=== PATIENT | female | born 1980 | race Caucasian/White ===

== ENCOUNTER 2018-05-10 09:35 | Outpatient (REF) | payer BC, SELFPAY ==
[2018-05-10 12:45] LABS: FREE T4 1.09 ng/dL (0.76-1.46); TSH 0.34 uIU/mL (0.358-3.74)
== END 2018-05-10 09:55 ==
LOC: LBN 09:35
PROVIDERS: PCP Family Medicine; Visit Provider Nurse Practitioner Family
DX: E04.9 Nontoxic goiter, unspecified (principal)
CPT/HCPCS: 84439; 84443

== ENCOUNTER 2018-07-24 16:13 | Outpatient (REF) | payer BC, SELFPAY ==
[2018-07-24 18:51] LABS: Abs Immature Grans 0.01 k/cumm (0.0-0.09); Absolute Basophil Count 0.02 k/cumm (0.0-0.2); Absolute Eosinophil Count 0.03 k/cumm (0.0-0.7); Absolute Lymphocyte Count 1.67 k/cumm (1.2-3.4); Absolute Monocyte Count 0.87 k/cumm (0.11-0.7); Absolute Neutrophil Count 8.11 k/cumm (1.2-6.7); Basophils % 0.2; Eosinophils % 0.3; HGB 12.1 g/dL (12.0-15.5); Immature Grans % 0.1; Lymphocytes % 15.6; Mean Corp. HGB Concentration 32.7 g/dL (32.0-36.0); Mean Corpuscular Hemoglobin 27.1 pg (27.0-33.0); Mean Corpuscular Volume 82.8 fL (80-95); Mean Platelet Volume 10.8 fL (8.0-11.0); Monocytes % 8.1; Neutrophils % 75.7; Platelet Count 364 x1000/uL (130-400); RBC 4.47 m/cumm (4.00-5.20); RBC Distribution Width 14.7 % (11.7-14.6); White Blood Cell Count 10.71 k/cumm (4.4-10.8)
[2018-07-24 19:16] LABS: ALT 29 U/L (12-78); AST 18 U/L (15-37); Alkaline Phosphatase 81 U/L (46-116); Amylase 42 U/L (25-115); Anion Gap 11.5 mmol/L (3-11); BUN 12 mg/dL (7-18); Bilirubin, Total 1.2 mg/dL (0.2-1.0); CO2 24.5 mmol/L (21.0-32.0); Calcium 9.3 mg/dL (8.5-10.1); Chloride 102 mmol/L (98-107); Glucose 95 mg/dL (70-100); Lipase 105 U/L (73-393); Potassium 3.8 mmol/L (3.5-5.1); Sodium 138 mmol/L (136-145); Total Protein 7.6 g/dL (6.4-8.2)
== END 2018-07-24 16:33 ==
LOC: NCHCN 16:13
PROVIDERS: PCP Family Medicine; Visit Provider Nurse Practitioner Family
DX: R10.10 Upper abdominal pain, unspecified (principal)
CPT/HCPCS: 80053; 83690; 82150; 85025

== ENCOUNTER 2018-08-02 01:44 | Outpatient (CLI) | payer BC, SELFPAY ==
--- NOTE | 2018-08-02 07:51 | DI.US_ITS ---
SYMPTOM/DIAGNOSIS: UPPER ABD PAIN, R10.10 ABDOMEN ULTRASOUND: The aorta and vena cava are intact. The liver has a maximal diameter of 13.4 cm. and is mildly echogenic, presumably on the basis of the fatty infiltration. The gallbladder is normal. There are no stones. There is no biliary dilatation. The pancreas is unremarkable. The spleen is acoustically normal with a maximal diameter of 11.2 cm. The kidneys are unremarkable. There is no evidence of abdominal free fluid. IMPRESSION: No evidence of cholelithiasis, biliary obstruction or acute cholecystitis. There is increased echogenicity in the liver likely representing fatty infiltration. The spleen is somewhat prominent with a maximal diameter of 11.2 cm.
== END 2018-08-02 02:04 ==
PROVIDERS: PCP Nurse Practitioner Family; Visit Provider Nurse Practitioner Family
DX: R10.11 Right upper quadrant pain (principal); K76.0 Fatty (change of) liver, not elsewhere classified; R16.1 Splenomegaly, not elsewhere classified
CPT/HCPCS: 76700

== ENCOUNTER 2018-10-08 06:04 | Day surgery (SDC) | payer BC, SELFPAY ==
[2018-10-08 06:34] VITALS: BP 123/94; PULSE 116; RESP 18; TEMP 36.6; O2SAT 100
--- NOTE | 2018-10-08 06:41 | W.COLOREPORT ---
Date of service: 10/08/18 Time of Service: : Colonoscopy Report Date of procedure: 10/08/18 Pre-op diagnosis general: Colon Cancer Screening and Family history of colon cancer at a young age Post-op diagnosis procedure note: other (Rectal polyp and family history) Procedure: Colonoscopy with polypectomy Surgeon: Pari Rivas Anesthesia proc note operative: other (General/ ASA 2/ Wade Zhu, ADELINE) Estimated blood loss (mL): 2 Pathology: other (rectal polyp) Complications: None Disposition: same day Indications: Mrs. Lennon is a 37 year old female here for her first colonoscopy. Her father was diagnosed and of colon cancer at age 48. She denies any changes in bowel habits. Risks, benefits and complications have been reviewed. Complications include but are not limited to bleeding, pain, perforation, missed small lesion/polyp, sore throat, aspiration and adverse reaction to the medications. Questions were entertained and answered to their satisfaction and they wished to proceed. No guarantees were given or implied. Prep: Miralax/Dulcolax Procedure Start Time: : Procedure End Time: :56 Retraction Time: 15 minutes Findings: One small sessile polyp in the rectum Procedure Description: After informed consent was obtained the patient was taken to the procedure room and placed in a left decubitous position. Monitors were applied and a time out was done. The patients name, date of , procedure, allergies to medications and metal in their body was reviewed. The patient was then sedated. Once sedated and comfortable a rectal exam was done. External exam was normal. Internal exam revealed a normal sphincter tone and no palpable masses. The scope was then introduced and retro-flexed. No internal hemorrhoids were identified. The scope was then advanced to the cecum without difficulty. The TI and appendiceal orifice were identified. The prep was adequate. The scope was then slowly retracted over 15 minutes back into the rectum. Polyps were removed with cold forceps in the rectum. The scope was removed and the patient was woken up and taken back to Same day surgery in stable condition. The patient tolerated the procedure well and there were no immediate complications. Follow up: The patient should follow up in 3-5 years unless they develop changes in bowel habits or other new gastrointestinal complaints.
--- NOTE | 2018-10-08 06:48 | W.PM.DSUDISC ---
Discharge Plan Disposition Patient Disposition: HOME Condition: Good Discharge Details Reason For Visit: Colon Cancer Screening, Family history Attending Provider: Pari Rivas Primary Care Provider: Doe Jones Home Meds and New Rx's Prescriptions: Continued sertraline 50 mg tablet 50 mg PO DAILY RF: 0 multivitamin [Daily Multi-Vitamin] 1 EACH tablet 1 ea PO DAILY RF: 0 Discontinued polyethylene glycol 3350 17 gram/dose powder 238 g PO ONCE Qty: 238 RF: 0 bisacodyl [Dulcolax (bisacodyl)] 5 mg tablet,delayed release (DR/EC) 5 mg PO ONCE Qty: 4 RF: 0 Discharge Instructions Instructions: Colonoscopy (GEN), Colorectal Polyps (GEN) Additional Instructions: Findings: rectal polyp Follow up: 3-5 years Please call if you develop: fevers >101.5 Nausea or Vomiting Abdominal pain that is not transient DAY SURGERY UNIT POST COLONOSCOPY INSTRUCTIONS 1. Because there will be medication in your system for the next 24 hours, you may feel a little sleepy. Your coordination will be affected. Therefore: a. Do not drive or operate dangerous equipment for 24 hours. b. Do not drink alcohol beverages for 24 hours (not even beer). c. Plan to go home and rest for the day. 2. Generally there are no restrictions on your activity after a day or so has gone by, but you may feel a bit fatigued for a few days. 3 After you arrive home you may have a light meal and return to a normal diet as you can tolerate it without feeling sick to your stomach. 4. After surgery, you may feel pain or discomfort. This should be only transient, but if it persists please contact your doctor. 5. If there are any questions regarding the findings of your procedure, please feel free to contact your doctor. 6. If you are unable to contact your doctor with a problem, contact the hospital at [phone]. 7. Continue all your regular medications unless directed otherwise. I understand the above instructions and have no questions. Signature of Patient or Responsible Adult Escort Date/Time Name of Responsible Adult Escort Signature of Nurse Date/Time Activity:: Activity as Tolerated Diet:: As Tolerated Discharge Orders Discharge Orders: Discharge Order (Routine); Ordered 10/08/18 Ordered By: Pari Rivas DS: Diagnosis Discharge Diagnosis (1) S/P colonoscopy: (2) Family history of colon cancer: Status: Resolved (3) Colorectal polyp detected on colonoscopy:
[2018-10-08] MEDS: Lactated Ringers 1,000 ML 80 ML IV (06:53)
--- NOTE | 2018-10-08 07:33 | BOWEL_PTH ---
PATIENT: Ivelisse Lennon LOC: [facility] U#:[id number] AGE/SX: 37/F ROOM: RE10/08/[address]: Pari Rivas MD : 1980 BED: DIS: 10/08/2018 SPEC #: [id number] RECD: 10/08/18 12:50 STATUS: BINU REQ #: [id number] SHIRA: 10/08/18 07:[address]: Pari Rivas DEPT: Surgical Specimen RECD BY: Philly East ENTERED: 10/08/18 12:51 SP TYPE: Bowel OTHR DR: Doe Jones Tissues: 1 - BIOPSY BOWEL Procedures: GROSS AND MICRO LEVEL 4 Comments: [id number]
[2018-10-08 08:10] VITALS: PULSE 88; RESP 20; O2SAT 96
== END 2018-10-08 09:05 | disposition home or self-care (01) ==
PROVIDERS: PCP Nurse Practitioner Family; Visit Provider Surgery
PROC: 0DJD8ZZ Inspection of Lower Intestinal Tract, Via Natural or Artificial Opening Endoscopic (ICD-10-PCS; CPT 45378; principal; 2018-10-08 07:30)
DX: Z12.11 Encounter for screening for malignant neoplasm of colon (principal); Z80.0 Family history of malignant neoplasm of digestive organs; K62.1 Rectal polyp
CPT/HCPCS: 45380; 81025; 88305

== ENCOUNTER 2018-12-21 14:22 | Emergency (ER) | payer BC, SELFPAY ==
[2018-12-21 14:25] VITALS: BP 138/66; PULSE 82; RESP 16; TEMP 36.6; O2SAT 98
--- NOTE | 2018-12-21 14:38 | ED.GENADUL_ITS ---
Discharge Plan Disposition Patient Disposition: HOME Condition: Stable Discharge Details Chief Complaint: Orthopedic Clinical Impression: Fracture of fifth metacarpal bone of right hand Primary Care Provider: Doe Jones ED Provider: Geoff Reyna Home Meds and New Rx's Prescriptions: Continued sertraline 50 mg tablet 50 mg PO DAILY RF: 0 Discharge Instructions Instructions: Boxer Fracture (ED) Additional Instructions: call orthopedics for an appointment you can take 1000mg tylenol and 600mg ibuprofen every 6 hours for pain as needed Referrals: Efra Cerda MD [ [facility] STAFF PHYSICIAN] - Medical Decision Making Patient states she tripped on stairs on Monday and landed on right hand. Denies head trauma or loc, no head pain, neck pain, chest pain, sob, abd pain. Has pain in mid right 5th metacarpal. Her pcp ordered a hand and wrist xray which confirmed nondisplaced 5th metacarpal fracture and was reffered here. Has full rom of the wrist without snuffbox tenderness so doubt scaphoid orother carpal bone fracture. Intact sensation and pulses. will place in boxer's splint and have her f/u with ortho Differential Diagnosis Differential Diagnosis: contusion, fracture HPI General Mode of arrival: ambulatory . Date/Time Provider Initiated Documentation: 12/21/18 14:23 . Limitations to Documentation: no limitations . Information obtained by: patient . History of Present Illness 38 year old F presents to the emergency department with the chief complaint of right hand pain, described as moderate, Quality is described as aching, No relieving factors improve symptom(s), No exacerbating factors reported . Patient did receive the following treatments prior to arrival, none Related Data Home Medications Medication Instructions Recorded Confirmed sertraline 50 mg tablet 50 mg PO DAILY 09/10/18 12/21/18 Allergies Allergy/AdvReac Type Severity Reaction Status Date / Time No Known Allergies Allergy Verified 12/21/18 14:30 General Stated Complaint: Orthopedic CECELIA: 4 Review of Systems Review of Systems ROS Unobtainable: All systems reviewed & are unremarkable except as noted in HPI and below Constitutional Constitutional: Denies chills, Denies fever(s) and Denies weakness Cardiovascular Cardiovascular: Denies dyspnea Respiratory Respiratory: Denies dyspnea Gastrointestinal Gastrointestinal: Denies abdominal pain, Denies nausea and Denies vomiting Musculoskeletal Musculoskeletal: Denies joint swelling Integumentary/Breasts Skin/Breast: Denies rash Neurologic Neurologic: Denies weakness Endocrine Endocrine: Denies heat intolerance [facility] Medical History (Updated 12/06/18 @ 11:20 by Em Mcintosh) Colorectal polyp detected on colonoscopy (Acute ~10/08/18) hyperplastic Enlarged thyroid (Resolved 11/26/13) Family history of colon cancer (Resolved 07/12/16) Father Dx at 48, at 49, PGF Surgical History (Updated 10/08/18 @ 06:48 by Pari Rivas MD) S/P colonoscopy (Acute ~10/08/18) Social History Smoking/Tobacco Use Status: Never Alcohol Intake: never Drug use: Never Substance use type: does not use Do you feel safe at home: Yes Do you feel safe in your relationship?: Yes Female Reproductive History Menstrual control method: permanent sterilization (Vasectomy for BC) History History 2 Para 2 Hx # Term Pregnancies Multiple births Hx # Pregnancies Ectopic pregnancies AB induced Hx Number of Living Children AB spontaneous Exam Const General: no acute distress Orientation: alert HENMT Head: normal to inspection Ears: external ears normal General nose exam: external nose normal Mouth: moist mucous membranes Eyes General: appearance normal, both eyes and all related structures Neck Neck: normal visual inspection Resp Effort & Inspection: normal respiratory effort and able to speak in complete sentences Cardio Rate: regular rate Skin General skin exam: no rashes or lesions noted Neuro General: alert and oriented x3 Extrem General: normal capillary refill Psych Mental Status: mental status grossly normal Course Vital Signs Vital signs: Vital Signs Temperature 36.6 C 12/21/18 14:25 Pulse 82 12/21/18 14:25 Respiratory Rate 16 12/21/18 14:25 Blood Pressure 138/66 12/21/18 14:25 Pulse Oximetry 98 12/21/18 14:25 Temperature 36.6 C 12/21/18 14:25 Temperature Source Skin 12/21/18 14:25 Pulse 82 12/21/18 14:25 Respiratory Rate 16 12/21/18 14:25 Respiratory Effort 12/21/18 14:31 Blood Pressure 138/66 12/21/18 14:25 Blood Pressure Position Sitting 12/21/18 14:25 Pulse Oximetry 98 12/21/18 14:25 Oxygen Delivery Method Room Air 12/21/18 14:25 Oxygen Flow Rate 0 12/21/18 14:25 Pain Level 7 12/21/18 14:31
== END 2018-12-21 14:47 | disposition home or self-care (01) ==
PROVIDERS: Emergency Provider Emergency Medicine; PCP Nurse Practitioner Family
DX: S62.356A Nondisplaced fracture of shaft of fifth metacarpal bone, right hand, initial encounter for closed fracture (principal); W10.8XXA Fall (on) (from) other stairs and steps, initial encounter
CPT/HCPCS: 26600; L3809

== ENCOUNTER 2018-12-21 14:23 | Outpatient (CLI) | payer BC, SELFPAY ==
--- NOTE | 2018-12-21 13:43 | DI.RAD_ITS ---
EXAM: XR WRIST RT COMPLETE INDICATION: POST TRAUMATIC INJURY, PAIN, M79.641. COMPARISON: XR HAND RT COMPLETE from 12/21/2018 XR HAND RT COMPLETE from 12/21/2018 TECHNIQUE: 2D digital imaging was performed. FINDINGS: There is a nondisplaced fracture of the distal shaft of the 5th metacarpal. The carpal bones appear intact and show normal alignment. The distal radius and ulna also appear normal. IMPRESSION: Nondisplaced fracture of the 5th metacarpal.
--- NOTE | 2018-12-21 13:45 | DI.RAD_ITS ---
EXAM: XR HAND RT COMPLETE INDICATION: POST TRAUMATIC INJURY, RT HAND JOINT PAIN, M79.641. COMPARISON: No exams were available for comparison TECHNIQUE: 2D digital imaging was performed. FINDINGS: There is a nondisplaced fracture of the distal shaft of the 5th metacarpal. There is no extension to the articular surface. No additional fractures are identified. IMPRESSION: Nondisplaced fracture of the 5th metacarpal.
== END 2018-12-21 14:43 ==
PROVIDERS: PCP Nurse Practitioner Family; Visit Provider Nurse Practitioner Family
DX: M25.531 Pain in right wrist (principal); M79.641 Pain in right hand; S62.356A Nondisplaced fracture of shaft of fifth metacarpal bone, right hand, initial encounter for closed fracture
CPT/HCPCS: 73110; 73130

== ENCOUNTER 2019-01-09 10:48 | Outpatient (CLI) | payer BC, SELFPAY ==
--- NOTE | 2019-01-09 09:37 | DI.RAD_ITS ---
EXAM: XR HAND RT COMPLETE CLINICAL HISTORY: F/U FRACTURE COMPARISON: No exams were available for comparison FINDINGS: Three views were obtained and show a previously described nondisplaced fracture of the 5th metacarpal . No change in alignment in comparison with the previous examination of December 21.
== END 2019-01-09 11:08 ==
PROVIDERS: PCP Nurse Practitioner Family; Visit Provider Student in an Organized Health Care Education/Training Program
DX: S62.356D Nondisplaced fracture of shaft of fifth metacarpal bone, right hand, subsequent encounter for fracture with routine healing (principal)
CPT/HCPCS: 73130

== ENCOUNTER 2019-04-05 13:16 | Outpatient (REF) | payer BC, SELFPAY ==
--- NOTE | 2019-04-05 13:00 | SKI_PTH ---
PATIENT: Ivelisse Lennon LOC: [facility] U#:[id number] AGE/SX: 38/F ROOM: RE04/05/[address]: Doe Jones : 1980 BED: DIS: 04/05/2019 SPEC #: [id number] RECD: 04/05/19 18:09 STATUS: BINU MOTA #: [id number] SHIRA: 04/05/19 13:[address]: Doe Jones DEPT: Surgical Specimen RECD BY: Philly East Tissues: 1 - SKIN BIOPSY(SHAVE/PUNCH) Procedures: SKIN LEVEL 4 Comments: [id number]
== END 2019-04-05 13:36 ==
LOC: NCHCN 13:16
PROVIDERS: PCP Nurse Practitioner Family; Visit Provider Nurse Practitioner Family
DX: L82.1 Other seborrheic keratosis (principal); L98.8 Other specified disorders of the skin and subcutaneous tissue
CPT/HCPCS: 88305

== ENCOUNTER 2019-08-20 12:07 | Outpatient (REF) | payer BC, SELFPAY ==
--- NOTE | 2019-08-20 10:45 | PAPFT_PTH ---
PATIENT: Ivelisse Lennon LOC: [facility] U#:[id number] AGE/SX: 38/F ROOM: RE08/20/[address]: JUSTUS Sullivan : 1980 BED: DIS: 08/20/2019 SPEC #: [id number] RECD: 08/20/19 12:39 STATUS: SOUReno REQ #: [id number] SHIRA: 08/20/19 10:[address]: Sonja Geiger DEPT: [facility] Cytology RECD BY: Philly East ENTERED: 08/20/19 12:39 SP TYPE: PAPFT OTHR DR: Doe Jones Tissues: 1 - CX/ENDOCX FOR PAP SMEARS Procedures: PAP THIN PREP/UVM Screening HPV DNA PROBE Comments: [id number]
== END 2019-08-20 12:27 ==
LOC: LBN 12:07
PROVIDERS: PCP Nurse Practitioner Family; Visit Provider Nurse Practitioner Family
DX: R35.0 Frequency of micturition (principal); Z12.4 Encounter for screening for malignant neoplasm of cervix; Z11.51 Encounter for screening for human papillomavirus (HPV)
CPT/HCPCS: 88142; 87086; 87624

== ENCOUNTER 2019-09-02 03:31 | Outpatient (CLI) | payer BC, SELFPAY ==
[2019-09-02 13:15] LABS: FREE T4 0.95 ng/dL (0.76-1.46); TSH 0.32 uIU/mL (0.36-3.74)
== END 2019-09-02 03:51 ==
PROVIDERS: PCP Nurse Practitioner Family; Visit Provider Internal Medicine Endocrinology, Diabetes & Metabolism
DX: E04.2 Nontoxic multinodular goiter (principal)
CPT/HCPCS: 36415; 84439; 84443

== ENCOUNTER 2019-12-18 02:19 | Outpatient (CLI) | payer BC, SELFPAY | END 2019-12-18 02:39 | PROVIDERS: PCP Nurse Practitioner Family; Visit Provider Internal Medicine Endocrinology, Diabetes & Metabolism | DX: E04.2 Nontoxic multinodular goiter (principal) | CPT/HCPCS: 36415; 84443 ==

== ENCOUNTER 2020-04-10 00:07 | Outpatient (REF) | payer BC, SELFPAY | END 2020-04-10 00:08 | LOC: LBN 00:07 | PROVIDERS: PCP Nurse Practitioner Adult Health; Visit Provider Nurse Practitioner Family | DX: R30.0 Dysuria (principal) | CPT/HCPCS: 87086 ==

== ENCOUNTER 2020-05-08 03:23 | Outpatient (CLI) | payer BC, SELFPAY ==
[2020-05-08 10:52] LABS: TSH 0.22 uIU/mL (0.36-3.74)
== END 2020-05-08 03:24 | disposition home or self-care (01) ==
LOC: LBO 03:23
PROVIDERS: PCP Nurse Practitioner Adult Health; Visit Provider Internal Medicine Endocrinology, Diabetes & Metabolism
DX: E04.2 Nontoxic multinodular goiter (principal)
CPT/HCPCS: 36415; 84443

== ENCOUNTER 2020-09-02 03:23 | Outpatient (CLI) | payer BC, SELFPAY ==
[2020-09-02 09:09] LABS: Abs Immature Grans 0.02 10^3/uL (0.0-0.06); Absolute Basophil Count 0.04 10^3/uL (0.0-0.2); Absolute Eosinophil Count 0.13 10^3/uL (0.0-0.7); Absolute Lymphocyte Count 2.27 10^3/uL (1.2-3.4); Absolute Monocyte Count 0.69 10^3/uL (0.1-0.8); Absolute Neutrophil Count 4.28 10^3/uL (1.2-6.7); Basophils % 0.5; Eosinophils % 1.7; HCT 42.9 % (36.0-46.0); HGB 14.2 g/dL (11.2-15.7); Immature Grans % 0.3; Lymphocytes % 30.6; MCH 28.5 pg (27.0-33.0); MCHC 33.1 % (32.0-36.0); MCV 86.1 fL (80-95); Monocytes % 9.3; Neutrophils % 57.6; Nucleated RBC 0 %; Platelet Count 343 10^3/uL (130-400); RBC 4.98 10^6/uL (3.93-5.22); RDW 13.2 % (11.7-14.6); RDW-SD 41.2 fL; WBC 7.43 10^3/uL (4.4-10.8)
[2020-09-02 09:51] LABS: ALT 28 U/L (14-59); AST 15 U/L (15-37); Albumin 3.9 g/dL (3.4-5.0); Alkaline Phosphatase 71 U/L (46-116); Anion Gap 8.8 mmol/L (3-11); BUN 10 mg/dL (7-18); CO2 26.2 mmol/L (21.0-32.0); CREATININE 0.9 mg/dL (0.55-1.02); Calcium 9.2 mg/dL (8.5-10.1); Chloride 105 mmol/L (98-107); FREE T4 0.89 ng/dL (0.76-1.46); Glucose 90 mg/dL (74-106); Potassium 3.9 mmol/L (3.5-5.1); Sodium 140 mmol/L (136-145); TSH 0.43 uIU/mL (0.36-3.74); Total Protein 7.7 g/dL (6.4-8.2)
[2020-09-02 16:34] LABS: T3,Free 3.9 pg/mL (2.8-5.3)
[2020-09-02 17:19] LABS: Thyroglobulin Antibody <15 U/mL (<=60); Thyroperoxidase Antibody <28 U/mL (<=60)
[2020-09-03 10:19] LABS: HIV-1/2 Ag & Ab Screen Negative (Negative)
[2020-09-03 10:41] LABS: HBs Antibody, Quant 99.1 mIU/mL (See Note); Hepatitis B Surface Ab Positive (See Note)
[2020-09-03 11:26] LABS: Hepatitis A Antibody IgM Negative (Negative); Hepatitis B Core Antibody Negative (Negative); Hepatitis B surface Ag Negative (Negative); Hepatitis C Ab w Rflx HCV PCR Negative (Negative)
== END 2020-09-02 03:24 | disposition home or self-care (01) ==
LOC: LBO 03:23
PROVIDERS: PCP Nurse Practitioner Adult Health; Visit Provider Nurse Practitioner Adult Health
DX: K76.0 Fatty (change of) liver, not elsewhere classified (principal); Z68.30 Body mass index [BMI] 30.0-30.9, adult; E04.9 Nontoxic goiter, unspecified; Z13.220 Encounter for screening for lipoid disorders; Z11.4 Encounter for screening for human immunodeficiency virus [HIV]; Z11.59 Encounter for screening for other viral diseases; E03.9 Hypothyroidism, unspecified; R59.1 Generalized enlarged lymph nodes
CPT/HCPCS: 36415; 80053; 86376; 86704; 86706; 86709; 86803; 87340; 87389; 84439; 84443; 84481; 85025

== ENCOUNTER 2021-05-05 10:47 | Outpatient (REF) | payer BC, SELFPAY ==
--- NOTE | 2021-05-05 10:30 | SKI_PTH ---
PATIENT: Ivelisse Lennon LOC: [facility] U#:[id number] AGE/SX: 40/F ROOM: RE05/05/[address]: Joann Graff APRN : 1980 BED: DIS: 05/05/2021 SPEC #: [id number] RECD: 05/05/21 15:23 STATUS: BINU REQ #: [id number] SHIRA: 05/05/21 10:[address]: Joann Graff DEPT: Surgical Specimen RECD BY: Philly East ENTERED: 05/05/21 15:24 SP TYPE: SKI EDIN DR: Kiah Hansen APRN Tissues: 1 - SKIN BIOPSY(SHAVE/PUNCH) Procedures: GROSS AND MICRO LEVEL 3 Comments: [id number]
== END 2021-05-05 10:48 | disposition home or self-care (01) ==
LOC: LBN 10:47
PROVIDERS: PCP Nurse Practitioner Adult Health; Visit Provider Nurse Practitioner Family
DX: L91.8 Other hypertrophic disorders of the skin (principal)
CPT/HCPCS: 88304; 88305

== ENCOUNTER 2021-05-19 20:21 | Outpatient (REF) | payer BC, SELFPAY | END 2021-05-19 20:22 | disposition home or self-care (01) | LOC: LBN 20:21 | PROVIDERS: PCP Nurse Practitioner Adult Health; Visit Provider Nurse Practitioner Family | DX: N39.0 Urinary tract infection, site not specified (principal) | CPT/HCPCS: 87086 ==

== ENCOUNTER 2021-05-21 01:34 | Outpatient (CLI) | payer BC, SELFPAY ==
[2021-05-21 12:10] LABS: TSH 0.11 uIU/mL (0.36-3.74)
[2021-05-24 05:31] LABS: Vitamin D 25 Total 26.3 ng/mL (30-100)
== END 2021-05-21 01:35 | disposition home or self-care (01) ==
LOC: LBO 01:35
PROVIDERS: PCP Nurse Practitioner Adult Health; Visit Provider Internal Medicine Endocrinology, Diabetes & Metabolism
DX: E05.90 Thyrotoxicosis, unspecified without thyrotoxic crisis or storm (principal); E04.2 Nontoxic multinodular goiter; E55.9 Vitamin D deficiency, unspecified
CPT/HCPCS: 36415; 82306; 84443

== ENCOUNTER 2021-06-07 16:54 | Outpatient (REF) | payer BC, SELFPAY | END 2021-06-07 16:55 | disposition home or self-care (01) | LOC: LBN 16:54 | PROVIDERS: PCP Nurse Practitioner Adult Health; Visit Provider Nurse Practitioner Family ==

== ENCOUNTER 2021-06-07 20:23 | Outpatient (REF) | payer BC, SELFPAY | END 2021-06-07 20:24 | disposition home or self-care (01) | LOC: LBN 20:23 | PROVIDERS: PCP Nurse Practitioner Adult Health; Visit Provider Nurse Practitioner Family | DX: R35.0 Frequency of micturition (principal) | CPT/HCPCS: 87086 ==

== ENCOUNTER 2021-08-19 03:53 | Outpatient (CLI) | payer BC, SELFPAY ==
[2021-08-19 08:04] LABS: FREE T4 0.89 ng/dL (0.76-1.46); TSH 0.66 uIU/mL (0.36-3.74)
[2021-08-19 08:17] LABS: Vitamin D 25 Total 33.9 ng/mL (30-100)
[2021-08-19 18:19] LABS: T3, Total 177 ng/dL (97-169)
== END 2021-08-19 03:54 | disposition home or self-care (01) ==
LOC: LBO 03:53
PROVIDERS: PCP Nurse Practitioner Adult Health; Visit Provider Internal Medicine Endocrinology, Diabetes & Metabolism
DX: E05.90 Thyrotoxicosis, unspecified without thyrotoxic crisis or storm (principal); E04.2 Nontoxic multinodular goiter; E55.9 Vitamin D deficiency, unspecified
CPT/HCPCS: 36415; 82306; 84439; 84443; 84480

== ENCOUNTER 2023-08-15 11:08 | Outpatient (REF) | payer BC, SELFPAY ==
--- NOTE | 2023-08-15 10:20 | PAPFT_PTH ---
PATIENT: Ivelisse Lennon LOC: [facility] U#:[id number] AGE/SX: 42/F ROOM: RE08/15/[address]: Michell Reyna NP : 1980 BED: DIS: 08/15/2023 SPEC #: [id number] RECD: 08/15/23 12:41 STATUS: BINU RELowell #: [id number] SHIRA: 08/15/23 10:[address]: Michell Reyna NP DEPT: [facility] Cytology RECD BY: Philly East ENTERED: 08/15/23 12:42 SP TYPE: PAPFT OTHR DR: Kiah Hansen APRN Tissues: 1 - CX/ENDOCX FOR PAP SMEARS Procedures: PAP THIN PREP/UVM Screening HPV DNA PROBE Comments: [id number]
== END 2023-08-15 11:09 | disposition home or self-care (01) ==
LOC: LBN 11:08
PROVIDERS: PCP Nurse Practitioner Adult Health; Visit Provider Nurse Practitioner Women's Health
DX: Z11.51 Encounter for screening for human papillomavirus (HPV) (principal); Z01.419 Encounter for gynecological examination (general) (routine) without abnormal findings
CPT/HCPCS: 88142; 87624

== ENCOUNTER → 2023-08-28 01:59 | Outpatient (CLI) | payer BC, SELFPAY ==
--- NOTE | 2023-08-28 06:45 | DI.MAMMO_ITS ---
Exam(s) MAMMO SCREENING EXAM: MAMMO SCREENING CLINICAL HISTORY: screening,z12.39 TECHNIQUE: Bilateral full field digital CC and MLO mammographic images were obtained with 3D tomosyn thesis and utilizing computer aided detection (CAD). COMPARISON: This is a baseline examination. FINDINGS: Masses/Architectural Distortion: None seen. Microcalcifications: No suspicious pleomorphic-type are seen. Skin Thickening/Nipple Retraction: None. IMPRESSION: 1. No evidence of malignancy is seen at this time. 2. Unless there is more urgent need, screening mammography is recommended, as per [employer] guidelines. BI-RADS Category 1 - Negative Breast Density - Category C - Heterogeneously dense Breast density category C or D implies that the patient has dense breast tissue. Dense breast tissue is very common and is not abnormal but dense breast tissue can make it harder to find cancer on a ma mmogram. Also, dense breast tissue may increase their breast cancer risk. This information about the result of the mammogram report was provided to the patient to raise their awareness. Use this report when you speak with the patient about their risks for breast cancer, which includes their family hist ory. At that time, you may recommend for more screening tests (Ultrasound or MRI) as they might be us eful based on their risk. A negative radiographic report should not delay biopsy if a dominant or clinically suspicious mass is present. Up to ten percent of cancers are not identified on mammography. A negative report may reinforce clinical impression. Adenosis and dense breasts may obscure an underlying neoplasm. False positive reports average 6 to 10%. Patient will receive a letter notifying them of these results.
== END ==
PROVIDERS: PCP Nurse Practitioner Adult Health; Visit Provider Nurse Practitioner Women's Health
DX: Z12.31 Encounter for screening mammogram for malignant neoplasm of breast (principal)
CPT/HCPCS: 77063; 77067

== ENCOUNTER 2023-10-18 03:15 | Outpatient (CLI) | payer BC, SELFPAY ==
[2023-10-18 12:56] LABS: TSH (W/Ref FT4) 0.29 uIU/mL (0.36-3.74); Vitamin D 25 Total 25.8 ng/mL (30-100)
[2023-10-18 13:16] LABS: FREE T4 1.09 ng/dL (0.76-1.46)
[2023-10-18 18:22] LABS: T3, Total 189 ng/dL (97-169)
== END 2023-10-18 03:16 | disposition home or self-care (01) ==
LOC: LOS 03:15
PROVIDERS: PCP Nurse Practitioner Adult Health; Visit Provider Internal Medicine Endocrinology, Diabetes & Metabolism
DX: E04.1 Nontoxic single thyroid nodule (principal); E55.9 Vitamin D deficiency, unspecified; E04.2 Nontoxic multinodular goiter; E05.90 Thyrotoxicosis, unspecified without thyrotoxic crisis or storm
CPT/HCPCS: 36415; 82306; 84439; 84443; 84480

== ENCOUNTER 2023-12-28 08:25 | Day surgery (SDC) | payer BC, SELFPAY ==
[2023-12-28 08:39] VITALS: BP 128/97; PULSE 135; RESP 20; TEMP 36.7; O2SAT 100
--- NOTE | 2023-12-28 09:05 | ANES.PREOP_ITS ---
General Info Date of Service Date Performed: 12/28/23 Height: 5 ft 6 in Weight: 84.5 kg Body Mass Index (BMI): 30.0 Surgical Procedure: Operation Date: 12/28/23 09:50 Proposed Procedure Side Surgeon p Colonoscopy Cruz Peraza MD Meds Allergies and Home Medications Allergies Allergy/AdvReac Type Severity Reaction Status Date / Time No Known Allergies Allergy Verified 12/28/23 08:37 Home Medication ?Medication ?Instructions ?Recorded multivitamin 1 tab PO DAILY 05/08/20 cholecalciferol (vitamin D3) 25 2,000 unit PO DAILY 07/21/21 mcg (1,000 unit) capsule propranolol 60 mg capsule,24 60 mg PO .qd -bid PRN as she has 10/04/23 hr,extended release no palpatations and asymptomatic Current Visit Medications: Current Medications Generic Name Dose Route Start Last Admin Trade Name Freq PRN Reason Stop Dose Admin IV Miscellaneous Supplies 1 each 12/28/23 09:15 Iv Access IV 01/27/24 09:14 DIRECTED [facility] Active Problems Active Problems: Problem Status Onset Code Encounter for screening colonoscopy Acute Z12.11 Vitamin D insufficiency Acute 05/21/21 E55.9 Paresthesia of hand, bilateral Acute R20.2 Anxiety about health Chronic F41.8 Tachycardia Acute R00.0 Multiple benign nevi Chronic D22.9 Fatty infiltration of liver Chronic ~2019 K76.0 BMI 30.0-30.9,adult Chronic Z68.30 Urinary frequency Resolved R35.0 Colorectal polyp detected on colonoscopy Acute ~10/08/18 K63.5 Family history of colorectal cancer Chronic Z80.0 Enlarged thyroid Chronic 11/26/13 E04.9 Medical History Medical History Lymph nodes enlarged R ear; serial 2020 & 2021 US stable, asymptomatic and no other swollen glands Tinea versicolor Fracture, metacarpal shaft (12/17/18) Bruxism TMJ (temporomandibular joint disorder) Tension headache Massage Family history of colon cancer (07/12/16) Father Dx at 48, at 49, PGF Surgical History Surgical History S/P colonoscopy (~10/08/18) Tobacco Smoking/Tobacco Use Status: Never Passive smoking exposure: No Second hand exposure: No Alcohol Alcohol Intake: current Alcohol intake frequency: holidays/special occasions only Substance Use Substance use: Never Substance use type: does not use Prental History History 2 Para 2 Hx # Term Pregnancies Multiple births Hx # Pregnancies Ectopic pregnancies AB induced Hx Number of Living Children AB spontaneous Vital Signs and Lab Results Vital Signs Most Recent Vital Signs in EMR: Most Recent Vital Signs Temp Pulse Resp BP Pulse Ox 36.7 C 135 H 20 128/97 H 100 12/28/23 08:39 12/28/23 08:39 12/28/23 08:39 12/28/23 08:39 12/28/23 08:39 Point of Care Results Point of Care Results: POC- Test(urine) Negative 12/28/23 08:49 Lab Results Blood Type / Crossmatch: No Data to Display Complete Blood Count: No Data to Display Complete Metabolic Panel: No Data to Display Liver Function Panel: No Data to Display Coagulation Panel: No Data to Display Cardiac Panel: No Data to Display Arterial Blood Gas: No Data to Display Venous Blood Gas: No Data to Display Pancreas Panel: No Data to Display Thyroid Panel: 2 No Data to Display Infectious Disease: No Data to Display Blood Cultures: No Data to Display Toxicology Panel: No Data to Display Panel: No Data to Display Anesthesia Assessment and Plan Anesthesia History Personal History: No History of Anesthesia Complications Family History: No Family History of Anesthesia Complications Exercise Tolerance Exercise Tolerance: Metabolic Equivalents>4 Pertinent Negatives Pertinent Negatives: No Symptoms of GERD, No Major Cardiovascular Symptoms or Complaints, No Major Pulmonary Symptoms or Complaints and No History of CVA/TIA Cardiac & Pulmonary Exam Cardiac Exam: Normal S1/S2 Heart Sounds Pulmonary Exam: Clear Bilateral Breath Sounds Implantable Cardiac Device Does patient have a Pacemaker or an ICD?: No Airway Exam Known Difficult Airway: No Mallampati Class: 2 Mouth Opening: Normal (> 3cm) Thyromental Distance: Greater than 3 cm Neck Range of Motion: Full ROM Neck Circumference: Normal Teeth Condition: Normal Dentition ASA Classification ASA Score: ASA 2 Emergency Case?: No NPO Status NPO Status: NPO Clears >2 hours, Solids >8 hours Status Status: Negative HCG Anesthesia Plan Resuscitation Status: Full Code Anesthesia Technique: General Anesthesia Airway Planned: Natural Airway Monitors Used: Standard Monitors Preoperative Comments:: 43 y/o female with history of anxiety, tachycardia and toxic nodule/multinodular goiter (managed by [facility]) presents for colonoscopy screening. Her last screening was in 2019 and was remarkable for a hyperplastic polyp. She has a family history of colon cancer in her father.
[2023-12-28] MEDS: Lactated Ringers 1,000 ML 80 ML IV (09:08)
--- NOTE | 2023-12-28 09:39 | W.COLOREPORT ---
Date of service: 12/28/23 Time of Service: 09:39 Colonoscopy Report Procedure Description: PROCEDURES PERFORMED: 1. Colonoscopy PREOPERATIVE DIAGNOSIS: Surveillance colonoscopy, family history POSTOPERATIVE DIAGNOSIS: Normal terminal ileum, normal colon, normal rectum SURGEON: Stevie Peraza MD INDICATION for procedure: The patient is a 43-year-old woman whose father from colon cancer at the age of 49. Her son is ulcerative colitis. This is her second colonoscopy. The first had no significant findings. She has no symptoms. FINDINGS: Terminal ileum was normal. No polyps. No diverticular disease. No inflammation anywhere. Nothing suspicious. No hemorrhoid disease. SURVEILLANCE interval/FOLLOW-UP: 5 years because of family history SPECIMENS: None EBL: Minimal COMPLICATIONS: None QUALITY of prep: Excellent Procedure in detail: The patient gave written consent and was in agreement with the indications, the potential risks as well as the benefits of the procedure. They were taken to the endoscopy suite and laid in the left lateral decubitus position. A timeout was performed and anesthesia was administered which was tolerated well. I started the procedure. Digital rectal and visual examination was performed and grossly within normal limits. A well-lubricated flexible colonoscope was then introduced and passed without any notable difficulty all the way to the cecum identified by the ileocecal valve and the appendiceal orifice. The ileum was intubated and looked normal. The scope was then slowly withdrawn with the above-noted findings. The patient tolerated the procedure well and was taken to the PACU in hemodynamically stable condition.
[2023-12-28 10:05] VITALS: BP 117/76; PULSE 107; RESP 16; TEMP 36.8; O2SAT 95
--- NOTE | 2023-12-28 10:15 | W.PM.DSUDISC ---
Date of service: 12/28/23 Time of Service: 10:15 Discharge Plan Disposition Patient Disposition: Home Condition: Good Discharge Details Attending Provider: Cruz Peraza Primary Care Provider: Kiah Hansen Home Meds and New Rx's Prescriptions: No Action multivitamin Tablet 1 tab PO DAILY cholecalciferol (vitamin D3) 25 mcg (1,000 unit) capsule 2,000 unit PO DAILY Rx Instructions: note dated 09/08/20 Endocrinology [facility] propranolol 60 mg capsule,extended release 24 hr 60 mg PO .qd -bid PRN (Reason: as she has no palpatations and asymptomatic) Patient Comments: Pt. states she has never had to take this Discharge Instructions Additional Instructions: FINDINGS: No polyps, no inflammation, nothing of concern. Repeat another colonoscopy in 5 years because of your family history. Activity:: Activity as Tolerated Diet:: As Tolerated
[2023-12-28 10:20] VITALS: BP 118/77; PULSE 103; RESP 18; TEMP 36.6; O2SAT 98
--- NOTE | 2023-12-28 10:25 | W.ANESPOSTOP ---
Postoperative Evaluation Date, Time and Location Date Performed: 12/28/23 Time Performed: 10:25 Patient Location: Day Surgery Unit Vital Signs Most Recent Imported Vital Signs: Most Recent Vital Signs Temp Pulse Resp BP Pulse Ox 36.6 C 103 H 18 118/77 98 12/28/23 10:20 12/28/23 10:20 12/28/23 10:20 12/28/23 10:20 12/28/23 10:20 Pain Score Most Recent Pain Score: Most Recent Pain Score Pain Level 0 12/28/23 10:20 Assessment Mental Status: Awake (Alert & Oriented to Patient Baseline) Airway and Respiratory Function: Patent airway with normal (patient baseline) respiratory exam Cardiovascular Function: Hemodynamically Stable Hydration Status: Adequately Hydrated Nausea & Vomiting: No Nausea or Vomiting Pain: Pt. Denies Any Pain Peripheral Nerve Block: Patient did not receive a nerve block
== END 2023-12-28 10:30 | disposition home or self-care (01) ==
PROVIDERS: PCP Nurse Practitioner Adult Health; Visit Provider Student in an Organized Health Care Education/Training Program
PROC: 0DJD8ZZ Inspection of Lower Intestinal Tract, Via Natural or Artificial Opening Endoscopic (ICD-10-PCS; CPT 45378; principal; 2023-12-28 09:45)
DX: Z12.11 Encounter for screening for malignant neoplasm of colon (principal); Z80.0 Family history of malignant neoplasm of digestive organs; Z86.0102 Personal history of hyperplastic colon polyps; F41.8 Other specified anxiety disorders; E04.9 Nontoxic goiter, unspecified; R00.0 Tachycardia, unspecified
CPT/HCPCS: 45378; 00123; J2405; J2704